=== PATIENT | male | born 1995 | race Caucasian/White ===

== ENCOUNTER 2023-03-29 11:34 | Emergency (ER) | payer OTHER, SELFPAY ==
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
--- NOTE | 2023-03-29 11:43 | PC.NURSE ---
pt arrived from triage to room nonverbal; responsive to painful stimuli. bilat large bore iv established. pa and staff electrical engineer at bedside. blood work obtained. sinus tachy on monitor. c-collar in place. ct notified for imaging.
--- NOTE | 2023-03-29 11:45 | PC.NURSE ---
Addendum entered by Andrew Llamas 03/29/23 12:46: wheeled in on wheelchair not stretcher Original Note: pt was wheeled into [facility]wr on stretcher, not responsive but breathing, collar placed on arrival and brought to room 19, c spine held as he was transferred via slide board to bed and awoke w sternal rub, prior to move, hr 115 and spo2 99 with rr 18
[2023-03-29 11:46] LABS: Glucose, Whole Blood 108 mg/dL (60-115)
--- NOTE | 2023-03-29 11:50 | ED.GENADULT ---
HPI - General Adult General Chief complaint: Fall Stated complaint: fell 10 feet Time Seen by Provider: 03/29/23 11:41 Source: patient Mode of arrival: ambulatory Limitations: altered mental status History of Present Illness HPI narrative: This is a 27-year-old male presenting to the emergency department status post unwitnessed fall from a 10 ft ladder, apparently patient was working on a roof, had an unwitnessed fall, did not have any head protection/helmet on. Patient has not been able to ambulate since the fall, according to family initially he appeared unresponsive, when he arrived to sternal rub was done, patient responded to painful stimuli and is moaning and groaning in pain unable to answer questions. Difficult to obtain NIH stroke scale as patient is not answering questions. GCS- 8 E(2) V(2) M(4) Related Data Allergies Allergy/AdvReac Type Severity Reaction Status Date / Time No Known Allergies Allergy Verified 03/29/23 11:40 Review of Systems Review of Systems: Yes Unobtainable due to mental status PMFSH Past Medical History Attestation statement: The following information was validated with the patient. Source: old records reviewed and nursing notes reviewed Social History Social History Advance Directives: No Advance Directives Information Provided: No Physical Exam ED Vital Signs: Vital Signs - 24 hr 03/29/23 12:06 03/29/23 12:42 Pulse Rate 108 H 77 Respiratory Rate 20 20 Blood Pressure 156/99 H 132/70 Pulse Oximetry 99 98 Oxygen Delivery Method Room Air Room Air BMI result Body Mass Index 27.7 Vital signs stable Appearance: Patient awake only to painful stimuli/sternal rub. GCS of 8. Moaning in pain. Head: Normocephalic, atraumatic, no step-offs or deformities Eyes: Pupils equal, round and reactive to light however, right pupil sluggish to respond to light ENT: Pharynx normal.? Normal gag reflex on initial exam Neck: Normal inspection.? Neck supple.? In a cervical collar for precaution CVS: Normal heart rate and rhythm.? Pulses normal.? Respiratory: No respiratory distress.? Breath sounds normal.? Abdomen: Soft and nontender.? Skin: Skin warm and dry.? Normal skin color.? Normal skin turgor.? Extremities:Patient able to move r UE and R LE, unable to move L UE, LE. 2+ DP,AT,PT pulses equal and b/l. Neuro: Patient awake only to painful stimuli/sternal rub. GCS of 8. Moaning in pain. + saddle paresthesias to L thigh region. + loss of sensation to LUE and LLE Course Reevaluation(s) Reevaluation #1: Patient slightly more arousable at this time states he cannot move his left side at all, cannot feel pain on his left side, , right-sided diminished sensation, has sluggish response on the right pupil. I am concerned for spinal injury/Brown-Sequard syndrome will reach out to [facility] Time: 12:15 Reevaluation #2: Patient will be a trauma transfer to [facility], concern for Brown-Sequard syndrome. I did discuss this with my attending who agrees with me. Dr. Moreno to except as [facility] trauma category 1. I did consider administering a 1 time 10 mg dose of Decadron however data is controversial, patient going to trauma center, they can determine if it is needed. Time: 12:26 Reevaluation #3: I did have my attending evaluate this patient at the bedside, no need for intubation at this time controlling his own airway, positive gag reflex. Time: 12:44 Additional Reevaluation(s): 1245 Patient with leukocytosis likely reactive secondary to fall. Chemistry unremarkable. Troponin negative, point of care stable. Patient's coags within normal limit. Ethanol negative. Covid negaive. MILLAN and scan results pending. Medications Administered Discontinued Medications Generic Name Dose Route Start Last Admin Trade Name Freq PRN Reason Stop Dose Admin Fentanyl 50 mcg 03/29/23 12:33 03/29/23 12:37 Fentanyl Citrate/Pf 100 Mcg/2 Ml Vial IVPUSH 03/29/23 12:34 50 mcg ONCE ONE Administration Protocol Iohexol 100 ml 03/29/23 12:00 03/29/23 12:01 Iohexol 350 Mg/Ml 100 Ml Infus..Btl IV 03/29/23 12:01 85 ml ONCE ONE Administration Morphine Sulfate 4 mg 03/29/23 12:20 03/29/23 12:30 Morphine Sulfate 4 Mg/Ml Cartridge IVPUSH 03/29/23 12:21 4 mg ONCE ONE Administration Protocol Medical Decision Making Medical Decision Making [facility] Narrative: 1154 27-year-old male presents status post unwitnessed fall with altered mental status, according to significant other patient fell off of a 10 ft ladder while doing roof work. No head protection. Not on blood thinners GCS 8- protecting own airway however. Physical exam patient only responding to painful stimuli and moaning in pain. Breath sounds clear. Pupils equal round and reactive however right pupil sluggish to respond to light. Patient not following commands. Patient able to move r UE and R LE, unable to move L UE, LE. Neuro: Patient awake only to painful stimuli/sternal rub. GCS of 8. Moaning in pain. + saddle paresthesias to L thigh region. + loss of sensation to LUE and LLE. Concerns for traumatic injury to head, neck, chest, abdomen or pelvis. Patient cervical collar. Will obtain basic labs, monzon scan. Will rule out polysubstance abuse and alcohol intoxication. I do have some suspicion for spinal cord injury, cauda equina or Brown sequard syndrome ( will obtain imaging w/ IV contrast prior to labs) Plan at this time labs, imaging, EKG. When a care 106 on arrival Differential Diagnosis Differential Diagnoses: The differential diagnosis associated with the presentation includes Concerns for traumatic injury to head, neck, chest, abdomen or pelvis. Patient cervical collar. Will obtain basic labs, monzon scan. Will rule out polysubstance abuse and alcohol intoxication. I do have some suspicion for spinal cord injury, cauda equina or Brown sequard syndrome Admission/Observation Consideration of admission/observation: Escalation of care including admission/observation considered like;y Consult Healthcare Provider Management of the patient was discussed with: Final Assembly And Packing Supervisor (SALVATORE almeida ) Lab Data MDM Lab Attestation statement: I reviewed the patient's lab results. 03/29/23 11:45 03/29/23 11:45 Labs: Lab Results 03/29/23 03/29/23 Range/Units 11:43 11:45 WBC 17.1 H (4.8-10.8) X10*3/uL RBC 5.17 (4.60-5.80) X10*6/uL Hgb 15.0 (14.0-18.0) g/dl Hct 45.4 (42.0-52.0) % MCV 87.8 (80.0-98.0) fL MCH 29.0 (27.0-33.0) pg MCHC 33.0 (31.0-36.0) g/dl RDW 13.0 (11.0-16.0) % Plt Count 357 (160-400) X10*3/uL MPV 10.4 (9.4-12.4) fL Immature Gran % (Auto) 0.7 H (0.0-0.4) % Neut % (Auto) 83.5 H (45-73) % Lymph % (Auto) 10.7 L (20-40) % [place] % (Auto) 4.3 (2-11) % Eos % (Auto) 0.4 (0-4) % Baso % (Auto) 0.4 (0-2) % Lymph # (Auto) 1.8 (1.2-4.9) X10*3/uL [place] # (Auto) 0.7 (0.1-1.2) X10*3/uL Eos # (Auto) 0.1 (0.0-0.4) X10*3/uL Baso # (Auto) 0.1 (0.0-0.2) X10*3/uL Abs Immat Gran (auto) 0.12 H (0.00-0.03) X10*3/uL Absolute Neuts (auto) 14.3 H (2.0-8.3) x10*3/uL Absolute Nucleated RBC 0.000 (0.0-0.012) X10*3/uL Nucleated RBC % (auto) 0.0 (0.0-0.2) /100WBC PT 12.2 (11.1-13.3) SEC INR 1.0 (0.9-1.1) Sodium 141 (135-145) mmol/L Potassium 3.9 (3.3-5.1) mmol/L Chloride 109 H (96-108) mmol/L Carbon Dioxide 23 (22-29) mmol/L Anion Gap 13 (12-20) BUN 14 (9-16) mg/dL Creatinine 1.12 (0.5-1.4) mg/dL Estim Creat Clear Calc 106.4 Estimated GFR > 60 POC Glucose 108 (60-115) mg/dL Random Glucose 90 (60-115) mg/dL Calcium 9.5 (8.4-10.2) mg/dL Magnesium 1.9 (1.6-2.6) mg/dL Total Bilirubin 0.6 (0.0-1.0) mg/dL AST 26 (5-37) U/L ALT 40 (0-40) U/L Alkaline Phosphatase 84 (39-117) U/L Troponin I High Sens < 2.7 (<3.5-35.0) ng/L Total Protein 8.0 (6.5-8.0) g/dL Albumin 4.9 (3.5-5.0) g/dL Ethyl Alcohol < 10 mg/dL COVID-19 (TEVIN) Negative (Negative) COVID-19 Clin Com See Note Independent Interpretation I performed an independent interpretation of an: Plain X-Ray (CXR wnl ) and CT Scan Radiology Impression Discussion of test interpretation with radiology: I have reviewed the radiologist's reading. Critical Care Time Critical Care Time Critical Care Time: Yes Total Critical Care Time: 45 Attestation: I attest to this time spent taking care of the patient, obtaining history, physical, reviewing labs, imaging, speaking to my attending, speaking to specialist. Discharge Plan Discharge Clinical Impression: Trauma, Fall from height of greater than 3 feet, Sensory loss Patient Disposition: [facility] Transfer Details: [facility] trauma category 1
[2023-03-29] MEDS: iohexoL 350 MG/ML 100 ML INFUS..BTL IV (12:01)
[2023-03-29 12:04] LABS: MANUAL DIFF FLAG NO
[2023-03-29 12:06] VITALS: BP 156/99; PULSE 108; RESP 20; O2SAT 99; BMI 27.7
--- NOTE | 2023-03-29 12:11 | ECG_ITS ---
Test Reason : fall Blood Pressure : / mmHG Vent. Rate : 090 BPM Atrial Rate : 090 BPM P-R Int : 168 ms QRS Dur : 082 ms QT Int : 314 ms P-R-T Axes : 050 021 035 degrees QTc Int : 384 ms Normal sinus rhythm Normal ECG No previous ECGs available Referred By: Adam Goodwin Electronically Signed By:ARDEN GASPAR
[2023-03-29 12:12] LABS: Prothrombin Time 12.2 SEC (11.1-13.3)
[2023-03-29 12:16] LABS: Basophils Absolute Auto 0.1 X10*3/uL (0.0-0.2); Basophils Percent Auto 0.4 % (0-2); Eosinophils Absolute Auto 0.1 X10*3/uL (0.0-0.4); Eosinophils Percent Auto 0.4 % (0-4); Hematocrit 45.4 % (42.0-52.0); Imm Gran Abs Auto 0.12 X10*3/uL (0.00-0.03); Imm Gran Pct Auto 0.7 % (0.0-0.4); Lymphocytes Absolute Auto 1.8 X10*3/uL (1.2-4.9); Lymphocytes Percent Auto 10.7 % (20-40); Mean Corpuscular Volume 87.8 fL (80.0-98.0); Mean Platelet Volume 10.4 fL (9.4-12.4); Monocytes Absolute Auto 0.7 X10*3/uL (0.1-1.2); Monocytes Percent Auto 4.3 % (2-11); Neutrophils Absolute Auto 14.3 x10*3/uL (2.0-8.3); Neutrophils Percent Auto 83.5 % (45-73); Platelet Count 357 X10*3/uL (160-400); Red Blood Count 5.17 X10*6/uL (4.60-5.80); White Blood Count 17.1 X10*3/uL (4.8-10.8)
[2023-03-29 12:26] LABS: Alanine Aminotransferase 40 U/L (0-40); Albumin Level 4.9 g/dL (3.5-5.0); Alkaline Phosphatase 84 U/L (39-117); Anion Gap 13 (12-20); Aspartate Amino Transferase 26 U/L (5-37); Bilirubin Total 0.6 mg/dL (0.0-1.0); Blood Urea Nitrogen 14 mg/dL (9-16); Calcium 9.5 mg/dL (8.4-10.2); Carbon Dioxide 23 mmol/L (22-29); Chloride 109 mmol/L (96-108); Creatinine Clr Calc Pharmacy 106.4; Estimated Glomerular Filt Rate > 60; Glucose Random 90 mg/dL (60-115); Magnesium 1.9 mg/dL (1.6-2.6); Potassium 3.9 mmol/L (3.3-5.1); Sodium 141 mmol/L (135-145)
[2023-03-29 12:29] LABS: COVID-19 Test Negative (Negative); IDNOW Serial# 08D9AD1C
[2023-03-29 12:30] LABS: Ethanol < 10 mg/dL
[2023-03-29 12:33] LABS: Troponin-I High Sensitivity < 2.7 ng/L (<3.5-35.0)
[2023-03-29] MEDS: fentaNYL citrate/PF 100 MCG/2 ML VIAL 50 MCG IVPUSH (12:37)
--- NOTE | 2023-03-29 12:39 | PC.NURSE ---
Addendum entered by Trinidad Barbosa 03/29/23 12:42: awaiting transfer to [facility]. Original Note: parra placed; vitals remain stable. LLE movement noted upon insertion of parra. pt reports inability to move/feel LUE. Pt reports pain of L. ribs. full ROM R upper and lower extremities. pt slow to respond at times. Rimma MARTIN and Dr. Narvaez at bedside at this time.
[2023-03-29 12:42] VITALS: BP 132/70; PULSE 77; RESP 20; O2SAT 98
[2023-03-29 12:59] VITALS: BP 136/72; PULSE 76; RESP 18; O2SAT 100
--- NOTE | 2023-03-29 13:00 | PC.NURSE ---
ems arrival to transfer pt to [facility].
--- NOTE | 2023-03-29 13:10 | PC.NURSE ---
report given to Trauma RN Breanne Khan [id number]
[2023-03-29 13:59] LABS: B Type Natriuretic Peptide < 10 pg/mL (<100)
== END 2023-03-29 13:12 | disposition short-term general hospital (02) ==
PROVIDERS: Physician Assistant; Emergency Provider Emergency Medicine
DX: R41.82 Altered mental status, unspecified (principal); R20.2 Paresthesia of skin; R44.9 Unspecified symptoms and signs involving general sensations and perceptions; Z91.81 History of falling; Z20.822 Contact with and (suspected) exposure to COVID-19; R00.0 Tachycardia, unspecified; R07.81 Pleurodynia
CPT/HCPCS: 36415; 51702; 70450; 71045; 71260; 72125; 74177; 80053; 80307; 82550; 82947; 83735; 83880; 84484; 85025; 85610; 87635; 93005; 96374; 96375; 99285; J2270; J3010; Q9967

== ENCOUNTER 2023-06-13 14:13 | Emergency (ER) | payer OTHER, SELFPAY ==
--- NOTE | ~2023-06-13 | XR_ITS ---
EXAMINATION: XR RIBS, LEFT CLINICAL INFORMATION: Left-sided rib pain COMPARISON: None available. TECHNIQUE: Single view chest and 4 views of the left ribs were obtained. FINDINGS: Lungs are clear. No consolidation, pneumothorax, or pleural effusion. The cardiomediastinal silhouette and pulmonary vasculature are normal. There are acute fractures involving the anterolateral seventh eighth and ninth ribs with the most displacement at the level of the eighth rib. No other fractures are seen.. XR/XR ribs LT min 3V w CXR1V IMPRESSION: Acute fractures involving the left seventh, eighth and ninth ribs.
--- NOTE | 2023-06-13 14:16 | ECG_ITS ---
Test Reason : CHEST DISCOMFORT Blood Pressure : / mmHG Vent. Rate : 059 BPM Atrial Rate : 059 BPM P-R Int : 144 ms QRS Dur : 082 ms QT Int : 376 ms P-R-T Axes : 013 011 018 degrees QTc Int : 372 ms Sinus bradycardia Otherwise normal ECG When compared with ECG of 29-MAR-2023 12:11, Vent. rate has decreased BY 31 BPM Referred By: Sofie Awad Electronically Signed By:JOSÉ GILL MD
[2023-06-13 14:43] VITALS: BP 138/60; PULSE 69; RESP 19; TEMP 36.6; O2SAT 100; BMI 30.3
--- NOTE | 2023-06-13 14:46 | ED_ITS ---
HPI - General Adult General Chief complaint: General Medical Stated complaint: Chest pain - broken rib ? Time Seen by Provider: 06/13/23 15:02 Source: patient Mode of arrival: ambulatory Limitations: no limitations History of Present Illness HPI narrative: Patient is a 27-year-old male presenting to the emergency department with complaint of left lateral rib pain since yesterday. States that he was helping his to clean the house and after a twisting motion while moving the refrigerator felt a cracking sensation to left ribs. Reports he has had a nonproductive cough for the past several days and the coughing is exacerbating his rib pain. Denies fevers. Denies hemoptysis. Patient seen here on 03/29 after a fall from roof and was subsequently transferred to [facility] as a trauma. Patient reports that he was diagnosed with rib fractures at [facility] at that time and was told to use caution with strenuous activities. Has not taken any gozl-rgl-[id number] medications for his symptoms. MD complaint: rib pain Onset (ago): hour(s) Location: chest Radiation: non-radiation Severity: severe and similar to prior episodes Quality: aching Pain Consistency: constant Relieving factors: rest Exacerbating factors: movement Associated symptoms: cough Treatments prior to arrival: none Related Data Previous Rx's Medication Instructions Recorded benzonatate 100 mg capsule 100 mg PO TID PRN cough #20 caps 06/13/23 ibuprofen 600 mg tablet 600 mg PO Q6H PRN pain #20 tabs 06/13/23 oxycodone 5 mg tablet 5 mg PO Q8H PRN pain #9 tabs 06/13/23 Allergies Allergy/AdvReac Type Severity Reaction Status Date / Time shrimp Allergy Hives Verified 06/13/23 14:42 Review of Systems Review of Systems: As per HPI. Yes all other systems are reviewed and are negative Constitutional: Constitutional: Reports as per HPI PMF Social History Social History Smoked in Last 30 Days: No Use of substances other than those prescribed or required for medical reasons: No Advance Directives: No Advance Directives Information Provided: No Physical Exam ED Vital Signs: Vital Signs - 24 hr 06/13/23 14:43 06/13/23 15:28 Temperature 98 F Pulse Rate 69 59 Respiratory Rate 19 16 Blood Pressure 138/60 127/72 Pulse Oximetry 100 99 Oxygen Delivery Method Room Air Room Air BMI result Body Mass Index 30.3 Vital signs have been reviewed and appear to be correct. Blood pressure normal. Heart rate normal. Respiratory rate normal. Temperature normal. Oxygen saturation normal. Const General: cooperative, healthy appearing and no acute distress Orientation/consciousness: oriented to person, oriented to place, oriented to time and patient oriented x3 Limitations: no limitations HENNM Head: Yes normocephalic and Yes atraumatic Ears: external ears normal General nose exam: Normal external nose present Face and sinus: Yes face symmetric Mouth: oropharynx normal and moist mucous membranes Throat: Yes uvula midline Eyes Pupils: Equal, round and reactive pupils present Neck Neck: Yes normal visual inspection and Yes supple Chest Chest palpation & inspection: normal inspection of the chest (no ecchymosis) and tenderness rib left anterior-axillary line involving the 6th rib, involving the 7th rib, involving the 8th rib, involving the 9th rib and involving the 10th rib Resp Effort & Inspection: normal respiratory effort and able to speak in complete sentences Auscultation: clear to auscultation bilaterally Cardio Rate: regular rate Rhythm: regular rhythm Heart sounds: S1 normal heart sound present and S2 normal heart sound present GI Palpation (GI): Soft to palpation and nontender Auscultation: normoactive bowel sounds General: Yes no CVA tenderness Back/Spine/Pelvis Back: no CVA tenderness Skin General skin exam: elasticity normal and turgor normal Neuro General: oriented to person, oriented to place, oriented to time, patient oriented x3, moves all extremities, no focal motor deficits and CN's II-XI intact bilaterally Cranial nerves: Yes Equal, round and reactive pupils present Cognition (Neuro): normal cognition Extrem General: Yes full ROM, Yes no pedal edema and Yes no calf tenderness Psych Mental Status: mental status grossly normal Affect: normal affect Thought process: Normal thought process present Course Course Course Narrative: This is an RME: Additional HPI, ROS, PE not included below will be deferred to primary provider. This is a [id number]male presenting to the emergency department with a complaint of left rib pain. Patient states that he fell a month and half ago and broke several ribs on his left side. He states that yesterday he was doing house work and felt a crack in the left side. Reporting that he has had a cough. Plan: left ribs xr and viral swabs Medications Administered Discontinued Medications Generic Name Dose Route Start Last Admin Trade Name Nick PRN Reason Stop Dose Admin Acetaminophen 975 mg 06/13/23 16:07 06/13/23 16:17 Acetaminophen 325 Mg Tablet PO 06/13/23 16:08 975 mg ONCE ONE Administration Ibuprofen 800 mg 06/13/23 16:07 06/13/23 16:17 Ibuprofen 800 Mg Tablet PO 06/13/23 16:08 800 mg ONCE ONE Administration Medical Decision Making Medical Decision Making [facility] Narrative: Patient is a 27-year-old male presenting to the emergency department with complaint of left lateral rib pain since yesterday. On exam patient is awake, A+Ox3, VS WNL, afebrile, normal neurological exam without focal deficits, physical exam findings as above. Given reported symptoms and physical exam findings, initial differential includes rib fracture, muscle strain, viral illness. X-ray notable for fracture of left 7th, 8th, and 9th ribs. My interpretation is in agreement with the radiologist's interpretation. Given that fractures are unilateral, no evidence of flail chest, patient maintaining oxygen saturation without difficulty and reports pain is manageable, feel patient is stable for discharge home at this time. Patient is agreeable with this. Discussed with patient the importance of pain management and taking deep breaths to prevent pneumonia. Strict return precautions discussed. Will prescribe benzonatate for cough, oxycodone for severe pain, advised patient to alternate Tylenol ibuprofen, apply ice intermittently, splint with pillows. RSV swab positive, patient advised of results. Instructed patient to follow-up with primary care provider. Patient verbalized understanding of and agreement with plan. Differential Diagnosis Differential Diagnoses: The differential diagnosis associated with the presentation includes As per [facility]. Admission/Observation Consideration of admission/observation: Escalation of care including admission/observation considered Given that patient has 3 rib fractures, admission considered, however patient is not hypoxic or tachypneic and is generally healthy, feel is stable for discharge home Lab Data [facility] Lab Attestation statement: I reviewed the patient's lab results. As per [facility]. Labs: Lab Results 06/13/23 Range/Units 15:28 Influenza Type A (PCR) NEGATIVE (Negative) Influenza Type B (PCR) NEGATIVE (Negative) RSV RNA Qual (PCR) POSITIVE A (Negative) SARS-CoV-2 RNA (RT-PCR) NEGATIVE (Negative) Independent Interpretation I performed an independent interpretation of an: Plain X-Ray Interpretation: Fracture of left 7th, 8th, and 9th ribs Radiology Impression Discussion of test interpretation with radiology: I have reviewed the radiologist's reading. Radiologist Impression: XR/XR ribs LT min 3V w CXR1V IMPRESSION: Acute fractures involving the left seventh, eighth and ninth ribs. External Record Review External record reviewed: Inpatient record, Office record and Outpatient record Prescription Management I considered prescription management with: Pain Medication and Other Discharge Plan Discharge Clinical Impression: RSV infection Left rib fracture Qualifiers: Encounter type: initial encounter Rib fracture type: multiple ribs Fracture type: closed Qualified Code(s): S22.42XA - Multiple fractures of ribs, left side, initial encounter for closed fracture Patient Disposition: Home, Self-Care Instructions: Respiratory Syncytial Virus (ED), Rib Fracture (ED) Additional Instructions: You have been evaluated in the emergency department today for rib pain. Your evaluation showed a fracture of your 7th, 8th, and 9th ribs. Please rest, ice, and use pillows to splint your ribs to help them heal. Use Tylenol or ibuprofen per package directions every 6 hours as needed for pain. If necessary, you can alternate these medications and take one medication every 3 hours. For instance, at noon take ibuprofen, then at 3:00 p.m. take Tylenol, then at 6:00 p.m. take ibuprofen. You are being prescibed oxycodone for severe pain, do not drink alcohol with this medication. Please follow-up with your primary care provider within 1 week. Return to the emergency department if you experience worsening pain, shortness of breath or difficulty breathing, coughing up blood, fever or any other concerning symptoms. Prescriptions: New ibuprofen 600 mg tablet 600 mg PO Q6H PRN (Reason: pain) Qty: 20 0RF benzonatate 100 mg capsule 100 mg PO TID PRN (Reason: cough) Qty: 20 0RF oxycodone 5 mg tablet 5 mg PO Q8H PRN (Reason: pain) Qty: 9 0RF Rx Instructions: Partial Fill upon patient request. Stand Alone Forms: Work/School Release
--- NOTE | 2023-06-13 15:01 | PC.NURSE ---
pt currently going to xray.
--- OUTSIDE RECORDS SUMMARY | 2023-06-13 15:18 | XMS_ITS | Continuity of Care Document ---
Author Name Unknown Organization [facility] Address [address] [place] [address]- Care Team Providers Care Controls Designer Name Role Phone Not on Staff, PCP Primary Care Physician Unavail able Encounter [facility] Date(s): 01/05/22 - 02/04/[address] [address]- Attending Physician: Jono Bateman Admitting Physician: Jono Bateman Referring Physician: AdmtrJono Allergies, Adverse Reactions, Alerts No Known Allergies Immunizations Given and Recorded Vaccine Date Status Refusal Reason Human Papillomavirus Vaccine 06/02/16 Given Human Papillomavirus Vaccine 1 03/19/14 Given Human Papillomavirus Vaccine 2 04/03/13 Given influenza virus vaccine, inactivated 06/02/16 Give n influenza virus vaccine, inactivated 3 04/03/13 Gi hattie influenza virus vaccine, inactivated 4 04/19/11 Gi hattie 1Result Comment: [03/19/2014] ordered by Dr Grande 2Rkelly Comment: [04/03/2013] Order By Dr Sanchez 3Rkelly Comment: [04/03/2013] Order By Dr Sanchez 4Admin Note: VIS 02/07/2011GIVEN Medications Levsin 0.125 mg oral tablet 0.125 mg, 1, tablet, By Mouth, 4 times a day, PRN, use one hour before meals and before bed. discontinue if it makes pain worse, # 20 tablet, Refills 0, Tot. Refills 0, Maintenance, for spasm, 01/09/17 22:36:43, Print Requisition Start Date: 01/09/17 Stop Date: 01/23/17 Status: Ordered omeprazole 20 mg oral enteric coated capsule 1 capsule = 20 mg, By Mouth, Daily, # 30 capsule, 2 Refills, Maintenance, 01/11/17 11:23:32, EC Capsule Start Date: 01/11/17 Status: Ordered Zofran 4 mg oral tablet 1 tablet = 4 mg, By Mouth, Every 8 hours, PRN Nausea & Vomiting, # 10 tablet, 0 Refills, Maintenance, 12/12/19 10:42:00 EDT, Tablet, [id number], 175, cm, 12/12/19 10:24:00 EDT, Height, 88.6, kg, 05/16/19 10:34:00 EDT, Dry Weight Start Date: 12/12/19 Stop Date: 12/15/19 Status: Ordered Problem List Condition Effective Dates Status Health Status Inform ant Attention deficit hyperactiv ity disorder(Confirmed) Active Behavioral problem(Confirmed) Active Social History Social History Type Response Smoking Status Never smoker entered on: 06/02/16 Sex
--- OUTSIDE RECORDS SUMMARY | 2023-06-13 15:18 | XMS_ITS | Continuity of Care Document ---
Author Name Unknown Organization [facility] Address [address] [place] [address]- Care Team Providers Care Pre K Teacher Name Role Phone Joe Olson MD Primary Care Physician Encounter [facility] Date(s): 05/03/23 - 06/02/[address] [id number] Allergies, Adverse Reactions, Alerts No Known Allergies Immunizations Given and Recorded Vaccine Date Status Refusal Reason [id number] 12y+ bivalent booster vax 06/12/22 Given SARS-CoV-2 (COVID-19) mRNA-1273 vaccine 06/23/21 R ecorded SARS-CoV-2 (COVID-19) mRNA-1273 vaccine 05/26/21 R ecorded Human Papillomavirus Vaccine 06/02/16 Given Human Papillomavirus Vaccine 1 03/19/14 Given Human Papillomavirus Vaccine 2 04/03/13 Given influenza virus vaccine, inactivated 06/02/16 Give n influenza virus vaccine, inactivated 3 04/03/13 Gi hattie influenza virus vaccine, inactivated 4 04/19/11 Gi hattie 1Result Comment: [03/19/2014] ordered by Dr Grande 2Result Comment: [04/03/2013] Order By Dr Sanchez 3Result Comment: [04/03/2013] Order By Dr Sanchez 4Admin Note: VIS 02/07/2011GIVEN Medications ambulation walker ambulation walker, See Instructions, # 1 each, Refills 0, Tot. Refills 0, Maintenance, ambulation walker, 03/30/23 16:15:00 EDT, Supply, 175, cm, 03/22/23 14:33:00 EDT, Height Start Date: 03/30/23 Status: Ordered ambulation walker ambulation walker, See Instructions, # 1 each, Refills 0, Tot. Refills 0, Maintenance, ambulation walker, 03/30/23 16:19:00 EDT, Supply Start Date: 03/30/23 Status: Ordered bacitracin zinc 500 units/g topical ointment 1 application, Topically, 3 times a day, # 30 Gm, 0 Refills, Maintenance, 04/20/23 16:23:00 EDT, Ointment, [id number], Partial fill upon patient request if the prescription is for a schedule II opioid drug., 1 application Topically 3 times a d... Start Date: 04/20/23 Status: Ordered blood pressure monitor dx reports htn blood pressure monitor dx reports htn, See Instructions, # 1 each, Refills 0, Tot. Refills 0, Maintenance, below, 07/11/22 15:59:00 EST, Supply Start Date: 07/11/22 Status: Ordered busPIRone 5 mg oral tablet See Instructions, 1 tablet By Mouth upt to 2 times a day for anxiety, # 30 tablet, Refills 0, Tot. Refills 0, Maintenance, 10/30/22 9:23:00 EDT, Instructions Replace Required Details, Route to Pharmacy Electronically, [id number], Partial fill... Start Date: 10/30/22 Status: Ordered famotidine 20 mg oral tablet 20 mg, 1, tablet, By Mouth, 2 times a day, # 60 tablet, Refills 1, Tot. Refills 1, Maintenance, 02/12/23 17:58:00 EDT, Route to Pharmacy Electronically, [id number], Partial fill upon patient request if the prescription is for a schedule II opi... Start Date: 02/12/23 Status: Ordered lidocaine 1.8% topical film 1 patch, Topically, Daily, leave on up to 12 hours, # 30 each, 0 Refills, Maintenance, 12/13/22 9:56:00 EDT, Film, [id number], Partial fill upon patient request if the prescription is for a schedule II opioid drug., 1 patch Topically Daily,Ins... Start Date: 12/13/22 Status: Ordered [employer] COVID-19 (12y+) Bivalent Booster Vaccine PF intramuscular suspension 0.3 mL, Intramuscular, Once, # 0.3 mL, 0 Refills, Soft Stop, 06/12/22 16:26:00 EST, [id number], Partial fill upon patient request if the prescription is for a schedule II opioid drug., 0.3 mLIntramuscular Once, 175, cm, 06/12/22 15:53:00 EST,... Start Date: 06/12/22 Status: Ordered physical therapy physical therapy, See Instructions, # 1 each, Refills 0, Tot. Refills 0, Maintenance, physical therapy, 03/30/23 16:19:00 EDT, Supply Start Date: 03/30/23 Status: Ordered Request for out patient physical therapy Request for out patient physical therapy, See Instructions, # 1 each, Refills 0, Tot. Refills 0, Maintenance, Physical therapy, 03/30/23 16:14:00 EDT, Supply, 175, cm, 03/22/23 14:33:00 EDT, Height Start Date: 03/30/23 Status: Ordered SARS-CoV-2 (COVID-19) mRNA-1273 (bivalent booster) vaccine preservative-free IM susp 0.5 mL, Intramuscular, Once, # 0.5 mL, 0 Refills, Soft Stop, 05/03/22 14:42:00 EDT, Partial fill upon patient request if the prescription is for a schedule II opioid drug. Start Date: 05/03/22 Status: Ordered Senna 8.6 mg oral tablet 8.6 mg, 1, tablet, By Mouth, Daily at bedtime, PRN, # 36 tablet, Refills 0, Tot. Refills 0, Maintenance, Constipation, 12/12/22 16:13:00 EDT, Route to Pharmacy Electronically, [id number] Tablet, Partial fill upon patient request if the prescri... Start Date: 12/12/22 Status: Ordered Zofran 4 mg oral tablet 1 tablet = 4 mg, By Mouth, Every 8 hours, PRN Nausea & Vomiting, # 10 tablet, 0 Refills, Maintenance, 12/12/19 10:42:00 EDT, Tablet, [id number], 175, cm, 12/12/19 10:24:00 EDT, Height, 88.6, kg, 05/16/19 10:34:00 EDT, Dry Weight Start Date: 12/12/19 Stop Date: 12/15/19 Status: Ordered Problem List Condition Confirmation Course Effective Dates Status H ealth Status Informant Attention deficit hyperactivity disorder Confirmed Active Behavioral problem Confirmed Active COVID-19 1 Confirmed 03/30/23 Active Obese class I Confirmed Active 1Problem added by Discern Expert Social History Social History Type Response Smoking Status Never smoker entered on: 06/02/16 Sex Male Patient Care team information Care Team Personnel Name: Joe Olson MD Position: [facility] Resident Member Role: PCP Address: Address: [address] [place] [address]- Care Team Related Persons Name: LO DAWSON Address: home [address] [place] [address]
--- OUTSIDE RECORDS SUMMARY | 2023-06-13 15:18 | XMS_ITS | Continuity of Care Document ---
Author Name Unknown Organization [facility] Address [address] [place] [address]- Care Team Providers Care Billing Spec Name Role Phone Wesley THOMPSON, Joe Primary Care Physician Encounter [facility] Date(s): 07/14/22 - 08/13/[address] [address] Allergies, Adverse Reactions, Alerts No Known Allergies Immunizations Given and Recorded Vaccine Date Status Refusal Reason [id number] 12y+ bivalent booster vax 06/12/22 Given SARS-CoV-2 [...] Dr Sanchez 4Admin Note: VIS 02/07/2011GIVEN Medications blood pressure monitor dx reports htn blood pressure monitor dx reports htn, See Instructions, # 1 each, Refills 0, Tot. Refills 0, Maintenance, below, 07/11/22 15:59:00 EST, Supply Start Date: 07/11/22 Status: Ordered busPIRone 5 mg oral tablet See Instructions, 1 tablet By Mouth upt to 2 times a day for anxiety, # 20 tablet, Refills 0, Tot. Refills 0, Maintenance, 07/11/22 15:57:00 EST, Instructions Replace Required Details, Route to Pharmacy Electronically, [facility]/pharm[facility] #[id number], Partial erik... Start Date: 07/11/22 Status: Ordered Heartburn Relief 10 mg oral tablet See Instructions, DANNY SHARP [facility] DOS [facility]ECES [place], # 60 tablet, 0 Refills, Maintenance, 06/14/22 18:43:00 EST, [id number], 175, cm, 06/12/22 15:53:00 EST, Height Start Date: 06/14/22 Status: Ordered [employer] COVID-19 (12y+) Bivalent Booster Vaccine PF intramuscular suspension 0.3 mL, Intramuscular, Once, # 0.3 mL, 0 Refills, Soft Stop, 06/12/22 16:26:00 EST, [facility]/pharm[facility] #[id number], Partial fill upon patient request if the prescription is for a schedule II opioid drug., 0.3 mLIntramuscular Once, 175, cm, 06/12/22 15:53:00 EST,... Start Date: 06/12/22 Status: Ordered SARS-CoV-2 (COVID-19) mRNA-1273 (bivalent booster) vaccine preservative-free IM susp 0.5 mL, Intramuscular, Once, # 0.5 mL, 0 Refills, Soft Stop, 05/03/22 14:42:00 EDT, Partial fill upon patient request if the prescription is for a schedule II opioid drug. Start Date: 05/03/22 Status: Ordered Zofran 4 mg oral tablet 1 tablet = 4 mg, By Mouth, Every 8 hours, PRN Nausea & Vomiting, # 10 tablet, 0 Refills, Maintenance, 12/12/19 10:42:00 EDT, Tablet, [facility]/pharm[facility] #[id number], 175, cm, 12/12/19 10:24:00 EDT, Height, 88.6, kg, 05/16/19 10:34:00 EDT, Dry Weight Start Date: 12/12/19 Stop Date: 12/15/19 Status: Ordered Problem List Condition Confirmation Course Effective Dates Status H ealth Status Informant Attention deficit hyperactivity disorder Confirmed Active Behavioral problem Confirmed Active Social History Social History Type Response Smoking Status Never smoker entered on: 06/02/16 Sex Patient Care team information Care Team Personnel Name: Joe Olson MD Position: [facility] Resident Member Role: PCP Address: Address: [address] [place] [address]- Care Team Related Persons Name: LO DAWSON Name: JOAQUIN LOYA Address: home [address] [place] [address]
--- OUTSIDE RECORDS SUMMARY | 2023-06-13 15:18 | XMS_ITS | Continuity of Care Document ---
Author Name Unknown Organization [facility] Address [address] [place] [address]- Care Team Providers Care Factory Maintenance Manager Name Role Phone Joe Olson MD Primary Care Physician Encounter [facility] Date(s): 10/17/22 - 12/20/[address] [address]- Attending Physician: Esperanza Garcia MD Admitting Physician: Esperanza Garcia MD Allergies, Adverse Reactions, Alerts No Known Allergies Immunizations Given and Recorded Vaccine Date Status Refusal Reason [id number] 12y+ bivalent booster vax 06/12/22 Given SARS-CoV-2 [...] Replace Required Details, Route to Pharmacy Electronically, [facility]/pharmacy #[id number], Partial fill... Start Date: 10/30/22 Status: Ordered famotidine 10 mg oral tablet 1 tablet = 10 mg, By Mouth, 2 times a day, # 60 tablet, 0 Refills, Maintenance, 10/30/22 9:24:00 EDT, Tablet, [facility] #[id number], Partial fill upon patient request if the prescription is for a schedule II opioid drug., 175, cm, 10/30/22 8:46:00 EDT, H... Start Date: 10/30/22 Status: Ordered ibuprofen 600 mg oral tablet 600 mg, 1, tablet, By Mouth, Every 6 hours, PRN, with food or milk, # 30 tablet, Refills 1, Tot. Refills 1, Acute 01/12/23 16:12:00 EDT, as needed for pain, 12/12/22 16:12:00 EDT, Route to Pharmacy Electronically, [facility]/pharmacy #[id number], 175, cm, 12/06/22... Start Date: 12/12/22 Stop Date: 01/12/23 Status: Ordered lidocaine 1.8% topical film 1 patch, Topically, Daily, leave on up to 12 hours, # 30 each, 0 Refills, Maintenance, 12/13/22 9:56:00 EDT, Film, [facility]/pharmacy #[id number], Partial fill upon patient request if the prescription is for a schedule II opioid drug., 1 patch Topically Daily,Ins... Start Date: 12/13/22 Status: Ordered Eligible COVID-19 (12y+) Bivalent Booster Vaccine PF intramuscular suspension 0.3 mL, Intramuscular, Once, # 0.3 mL, 0 Refills, Soft Stop, 06/12/22 16:26:00 EST, [id number], Partial fill upon patient request [...] 12/12/22 16:13:00 EDT, Route to Pharmacy Electronically, [facility]/pharmacy #[id number] Tablet, Partial fill upon patient request if the prescri... Start Date: 12/12/22 Status: Ordered Zofran 4 mg oral tablet 1 tablet = 4 mg, By Mouth, Every 8 hours, PRN Nausea & Vomiting, # 10 tablet, 0 Refills, Maintenance, 12/12/19 10:42:00 EDT, Tablet, [facility]/pharmacy #[id number], 175, cm, 12/12/19 10:24:00 EDT, Height, 88.6, kg, 05/16/19 10:34:00 EDT, Dry Weight Start Date: 12/12/19 Stop Date: 12/15/19 Status: Ordered Problem List Condition Confirmation Course Effective Dates Status H ealth Status Informant Attention deficit hyperactivity disorder Confirmed Active Behavioral problem Confirmed Active Obese class I Confirmed Active Social History Social History Type Response Smoking Status Never smoker entered on: 06/02/16 Sex Patient Care team information Care Team Personnel Name: Joe Olson MD Position: S Resident Member Role: PCP Address: Address: [address] [place] [id number]- Care Team Related Persons Name: LO DAWSON Name: JOAQUIN LOYA Address: home [address] [place] [address]
--- OUTSIDE RECORDS SUMMARY | 2023-06-13 15:19 | XMS_ITS | Continuity of Care Document ---
Author Name Unknown Organization [facility] Address [address] [place] [address]- Care Team Providers Care Cadastral Engineer Name Role Phone Joe Olson MD Primary Care Physician [phone] [facility]counter [facility] Date[facility]s): 07/18/22 - 08/17/[address] [address]- Allergies, Adverse Reactions, Alerts No Known Allergies Immunizations Given and Recorded Vaccine Date Status Refusal Reason [id number] 12y+ bivalent booster vax 06/12/22 Given SARS-CoV-2 [...] Replace Required Details, Route to Pharmacy Electronically, [facility]/pharmacy #[id number], Partial erik... Start Date: 07/11/22 Status: Ordered Heartburn Relief 10 mg oral tablet See Instructions, TOME ARON TABLETA DOS VECES AL ALTA, # 60 tablet, 0 Refills, Maintenance, 06/14/22 18:43:00 EST, [id number], 175, cm, 06/12/22 15:53:00 EST, Height Start Date: 06/14/22 Status: Ordered [email or web address] COVID-19 (12y+) Bivalent Booster Vaccine PF intramuscular suspension 0.3 mL, Intramuscular, Once, # 0.3 mL, 0 Refills, Soft Stop, 06/12/22 16:26:00 EST, [facility]/pharmacy #[id number], Partial fill upon patient request if [...] 0 Refills, Maintenance, 12/12/19 10:42:00 EDT, Tablet, [facility]/pharmacy #[id number], 175, cm, 12/12/19 10:24:00 EDT, Height, [...] S Resident Member Role: PCP Address: Address: [address] [place] [address]- Care Team Related Persons Name: LO DAWSON Name: JOAQUIN LOYA Address: home [address] [place] [address]
--- OUTSIDE RECORDS SUMMARY | 2023-06-13 15:19 | XMS_ITS | Continuity of Care Document ---
Author Name Unknown Organization [facility] Address [address] [place] [address]- Care Team Providers Care Online Banking Specialist Name Role Phone Joe Olson MD Primary Care Physician [phone] [facility]counter [facility] Date(s): 03/21/23 - 04/20/[address] [address]- Attending Physician: Jono Bateman Admitting Physician: Jono Bateman Referring Physician: AdmtrJono Allergies, Adverse Reactions, Alerts No Known Allergies Immunizations Given and Recorded Vaccine Date Status Refusal Reason [id number] 12y+ bivalent booster vax 06/12/22 Given SARS-CoV-2 [...] 1Result Comment: [03/19/2014] ordered by Dr Grande 2Resluisa Comment: [04/03/2013] Order By Dr Sanchez 3Result [...] 0 Refills, Maintenance, 04/20/23 16:23:00 EDT, Ointment, [facility]/pharmacy #[id number], Partial fill upon patient request [...] Replace Required Details, Route to Pharmacy Electronically, [facility]/pharmacy #[id number], Partial fill... Start Date: 10/30/22 Status: Ordered famotidine 20 mg oral tablet 20 mg, 1, tablet, By Mouth, 2 times a day, # 60 tablet, Refills 1, Tot. Refills 1, Maintenance, 02/12/23 17:58:00 EDT, Route to Pharmacy Electronically, [facility]/pharmacy #[id number], Partial fill upon patient request if the prescription is for a schedule II opi... Start Date: 02/12/23 Status: Ordered lidocaine 1.8% topical film 1 patch, Topically, Daily, leave on up to 12 hours, # 30 each, 0 Refills, Maintenance, 12/13/22 9:56:00 EDT, Film, [facility]/pharmacy #[id number], Partial fill upon patient request if the prescription is for a schedule II opioid drug., 1 patch Topically Daily,Ins... Start Date: 12/13/22 Status: Ordered morphine 15 mg oral tablet, immediate release 1 tablet = 15 mg, By Mouth, Every 12 hours, PRN for pain, # 30 tablet, 0 Refills, Acute 05/05/23 13:00:00 EDT, 04/20/23 16:08:00 EDT, Tablet, [facility]/pharmacy #[id number], Partial fill upon patient request if the prescription is for a schedule II opioid drug.,... Start Date: 04/20/23 Stop Date: 05/05/23 Status: Ordered [employer] COVID-19 (12y+) Bivalent Booster Vaccine PF intramuscular suspension 0.3 mL, Intramuscular, Once, # 0.3 mL, 0 Refills, Soft Stop, 06/12/22 16:26:00 EST, [facility]/pharmacy #[id number], Partial fill upon patient request [...] 12/12/22 16:13:00 EDT, Route to Pharmacy Electronically, [facility]/pharmacy #[id number] Tablet, Partial fill upon patient request if the prescri... Start Date: 12/12/22 Status: Ordered Zofran 4 mg oral tablet 1 tablet = 4 mg, By Mouth, Every 8 hours, PRN Nausea & Vomiting, # 10 tablet, 0 Refills, Maintenance, 12/12/19 10:42:00 EDT, Tablet, [facility]/pharmacy #[id number], 175, cm, 12/12/19 10:24:00 EDT, [...] S Resident Member Role: PCP Address: Address: [address] [place] [address]- Care Team Related Persons Name: LO DAWSON Address: home [address] [place] [id number]
--- OUTSIDE RECORDS SUMMARY | 2023-06-13 15:19 | XMS_ITS | Continuity of Care Document ---
Author Name Unknown Organization [facility] Address [address] [place] [address]- Care Team Providers Care Tester Waste Disposal Leakage Name Role Phone Joe Olson MD Primary Care Physician [phone] [facility] Date(s): 05/03/22 - 06/22/[address] [address]- Attending Physician: Not on Staff, Attending MD Allergies, Adverse Reactions, Alerts No Known Allergies Immunizations Given and Recorded Vaccine Date Status Refusal Reason [id number] 12y+ bivalent booster vax 06/12/22 Given SARS-CoV-2 [...] Dr Sanchez 4Admin Note: VIS 02/07/2011GIVEN Medications Heartburn Relief 10 mg oral tablet See Instructions, TOMJuan ARON TABLETA DOS VECES AL ALTA, # 60 tablet, 0 Refills, Maintenance, 06/14/22 18:43:00 EST, [facility], 175, cm, 06/12/22 15:53:00 EST, Height Start Date: 06/14/22 Status: Ordered [employer] COVID-19 (12y+) Bivalent Booster Vaccine PF intramuscular [...] S Resident Member Role: PCP Address: Address: [address] [place] [address]- Care Team Related Persons Name: LO DAWSON Name: JOAQUIN LOYA Address: home [address] [place] [address]
--- OUTSIDE RECORDS SUMMARY | 2023-06-13 15:19 | XMS_ITS | Continuity of Care Document ---
Author Name Unknown Organization [facility] Address [address] [place] [address]- Care Team Providers Care Line Builder Name Role Phone Wesley THOMPSON, Joe Primary Care Physician [facility] Date(s): 01/15/23 - 03/10/[address] [address]- Attending Physician: Not on Staff, Attending MD Allergies, Adverse Reactions, Alerts No Known Allergies Immunizations Given and Recorded Vaccine Date Status Refusal Reason [id number] 12y+ bivalent booster vax 06/12/22 Given SARS-CoV-2 [...] Replace Required Details, [id number] fill... Start Date: 10/30/22 Status: Ordered famotidine 20 mg oral tablet 20 mg, 1, tablet, By Mouth, 2 times a day, # 60 tablet, Refills 1, Tot. Refills 1, Maintenance, 02/12/23 17:58:00 EDT, Route to Pharmacy Electronically, [facility]/pharmacy #[id number], Partial fill upon patient request if the prescription is for a schedule II opi... Start Date: 02/12/23 Status: Ordered lidocaine 1.8% topical film 1 patch, Topically, Daily, leave on up to 12 hours, # 30 each, 0 Refills, Maintenance, 12/13/22 9:56:00 EDT, Film, [facility]/pharmacy #[id number], Partial fill upon patient request if the prescription is for a schedule II opioid drug., 1 patch Topically Daily,Ins... Start Date: 12/13/22 Status: Ordered [employer] COVID-19 (12y+) Bivalent Booster Vaccine PF intramuscular suspension 0.3 mL, Intramuscular, Once, # 0.3 mL, 0 Refills, Soft Stop, 06/12/22 16:26:00 EST, [facility]/pharmacy #[id number], Partial fill upon patient request if [...] 12/12/22 16:13:00 EDT, Route to Pharmacy Electronically, [facility]/pharmacy #[id number] Tablet, Partial fill upon patient request if the prescri... Start Date: 12/12/22 Status: Ordered Zofran 4 mg oral tablet 1 tablet = 4 mg, By Mouth, Every 8 hours, PRN Nausea & Vomiting, # 10 tablet, 0 Refills, Maintenance, 12/12/19 10:42:00 EDT, Tablet, [facility]/pharmacy #[id number], 175, cm, 12/12/19 10:24:00 EDT, Height, [...] Team Personnel Name: Joe Olson MD Position: [facility] Resident Member Role: PCP Address: Address: [address] [place] [address]- [place] Care Team Related Persons Name: LO DAWSON Address: [place] [address] Name: JOAQUIN LOYA Address: [address] [address]
--- OUTSIDE RECORDS SUMMARY | 2023-06-13 15:19 | XMS_ITS | Continuity of Care Document ---
Author Name Unknown Organization [facility] Address [address] [place] [address]- Care Team Providers Care Search Developer Name Role Phone Wesley THOMPSON, Joe Primary Care Physician [facility]counter [facility] Date(s): 07/11/22 - 09/14/[address] [address]- Attending Physician: Not on Staff, Attending MD Allergies, Adverse Reactions, Alerts No Known Allergies Immunizations Given and Recorded Vaccine Date Status Refusal Reason [id number] 12y+ bivalent booster vax 06/12/22 Given SARS-CoV-2 [...] Details, Route to Pharmacy Electronically, [facility]/pharmacy #[id number], Partial erik... Start Date: 07/11/22 Status: Ordered Heartburn Relief 10 mg oral tablet See Instructions, DANNY SHARP TABLETA DOS VECES AL ALTA, # 60 tablet, 0 Refills, Maintenance, 06/14/22 18:43:00 EST, [id number], 175, cm, 06/12/22 15:53:00 EST, Height Start Date: 06/14/22 Status: Ordered [employer] COVID-19 (12y+) Bivalent Booster Vaccine PF intramuscular suspension 0.3 mL, Intramuscular, Once, # 0.3 mL, 0 Refills, Soft Stop, 06/12/22 16:26:00 EST, [facility]/pharmacy #[id number], Partial fill upon patient request if [...] Maintenance, 12/12/19 10:42:00 EDT, Tablet, [facility]/pharmacy #[id number], 175, cm, 12/12/19 10:24:00 EDT, Height, [...] S Resident Member Role: PCP Address: Address: [address] [place] [address]- Care Team Related Persons Name: LO DAWSON Name: JOAQUIN LOYA Address: home [address] [place] [address]
--- OUTSIDE RECORDS SUMMARY | 2023-06-13 15:19 | XMS_ITS | Continuity of Care Document ---
Author Name Unknown Organization [facility] Address [address] [place] [address]- Care Team Providers Care Mold Bunch Trimmer Name Role Phone Joe Olson MD Primary Care Physician Encounter [facility] Date(s): 10/25/22 - 11/24/[address] [address]- Allergies, Adverse Reactions, Alerts No Known Allergies Immunizations Given and Recorded Vaccine Date Status Refusal Reason [id number] 12y+ bivalent booster vax 06/12/22 Given SARS-CoV-2 [...] Replace Required Details, Route to Pharmacy Electronically, [facility]/pharmacy #[id number], Partial fill... Start Date: 10/30/22 Status: Ordered famotidine 10 mg oral tablet 1 tablet = 10 mg, By Mouth, 2 times a day, # 60 tablet, 0 Refills, Maintenance, 10/30/22 9:24:00 EDT, Tablet, [facility]/pharmacy #[id number], Partial fill upon patient request if the prescription is for a schedule II opioid drug., 175, cm, 10/30/22 8:46:00 EDT, H... Start Date: 10/30/22 Status: Ordered naproxen 500 mg oral delayed release tablet 1 tablet = 500 mg, By Mouth, 2 times a day, # 60 tablet, 0 Refills, Acute 11/29/22 9:25:00 EDT, 10/30/22 9:25:00 EDT, EC Tablet, [facility]/pharmacy #[id number], Partial fill upon patient request if the prescription is for a schedule II opioid drug., 175, cm, 10/14... Start Date: 10/30/22 Stop Date: 11/29/22 Status: Ordered [employer] COVID-19 (12y+) Bivalent Booster Vaccine PF intramuscular suspension 0.3 mL, Intramuscular, Once, # 0.3 mL, 0 Refills, Soft Stop, 06/12/22 16:26:00 EST, [facility]/pharmacy #[id number], Partial fill upon [...] Team Personnel Name: Joe Olson MD Position: [facility] Resident Member Role: PCP Address: Address: [address] [place] [address]- Care Team Related Persons Name: LO DAWSON Name: JOAQUIN LOYA Address: home [address] [place] [address]
--- OUTSIDE RECORDS SUMMARY | 2023-06-13 15:19 | XMS_ITS | Continuity of Care Document ---
Author Name Unknown Organization [facility] Address [address] [place] [address]- Care Team Providers Care Service Department Manager Name Role Phone Joe Olson MD Primary Care Physician [phone] Encounter [facility] [place] [place] Date(s): 04/20/23 - 05/27/[address] [address] Attending Physician: Not on Staff, Attending MD Allergies, Adverse Reactions, Alerts No Known Allergies Immunizations Given and Recorded Vaccine Date Status Refusal Reason [id number] 12y+ bivalent booster vax 06/12/22 Given SARS-CoV-2 [...] 0 Refills, Maintenance, 04/20/23 16:23:00 EDT, Ointment, [facility]/pharmacy #[id number], Partial fill upon patient [...] 02/12/23 17:58:00 EDT, Route to Pharmacy Electronically, [facility]/pharmacy #[id number], Partial fill upon patient [...] Topically Daily,Ins... Start Date: 12/13/22 Status: Ordered [employer] COVID-19 (12y+) Bivalent Booster Vaccine PF intramuscular suspension 0.3 mL, Intramuscular, Once, # 0.3 mL, 0 Refills, Soft Stop, 06/12/22 16:26:00 EST, [facility]/pharmacy #[id number], Partial fill upon patient [...] 12/12/22 16:13:00 EDT, Route to Pharmacy Electronically, [facility]/pharmacy #[id number] Tablet, Partial fill upon patient request if the prescri... Start Date: 12/12/22 Status: Ordered Zofran 4 mg oral tablet 1 tablet = 4 mg, By Mouth, Every 8 hours, PRN Nausea & Vomiting, # 10 tablet, 0 Refills, Maintenance, 12/12/19 10:42:00 EDT, Tablet, [facility]/pharmacy #[id number], 175, cm, 12/12/19 10:24:00 [...] Team Personnel Name: Joe Olson MD Position: [facility] Resident Member Role: PCP Address: Address: [address] [place] [address]- Care Team Related Persons Name: LO DAWSON Address: home [address] [place] [address]
--- OUTSIDE RECORDS SUMMARY | 2023-06-13 15:19 | XMS_ITS | Continuity of Care Document ---
Author Name Unknown Organization [facility] Address [address] [place] [address]- Care Team Providers Care Manager Area Name Role Phone Not on Staff, PCP Primary Care Physician Unavail able [facility] Date(s): 03/15/23 - 04/14/[address] [address] Allergies, Adverse Reactions, Alerts No Known Allergies Immunizations Given and Recorded Vaccine Date Status Refusal Reason [id number] 12y+ bivalent booster vax 06/12/22 Given SARS-CoV-2 [...] EDT, Supply Start Date: 03/30/23 Status: Ordered blood pressure monitor dx reports [...] Replace Required Details, Route to Pharmacy Electronically, [facility]/pharmacy #[id number], Partial fill... Start Date: 10/30/22 Status: Ordered famotidine 20 mg oral tablet 20 mg, 1, tablet, By Mouth, 2 times a day, # 60 tablet, Refills 1, Tot. Refills 1, Maintenance, 02/12/23 17:58:00 EDT, Route to Pharmacy Electronically, [facility]/pharmacy #[id number], Partial fill upon patient request if the prescription is for a schedule II opi... Start Date: 02/12/23 Status: Ordered lidocaine 1.8% topical film 1 patch, Topically, Daily, leave on up to 12 hours, # 30 each, 0 Refills, Maintenance, 12/13/22 9:56:00 EDT, Film, [facility]/pharmacy #[id number], Partial fill upon patient request if the prescription is for a schedule II opioid drug., 1 patch Topically Daily,Ins... Start Date: 12/13/22 Status: Ordered naproxen 500 mg oral tablet 1 tablet = 500 mg, By Mouth, 2 times a day, for 14 days, # 28 tablet, 0 Refills, Acute 04/17/23 14:54:00 EDT, 04/03/23 14:54:00 EDT, Tablet, [id number], Partial fill upon patient request if the prescription is for a schedule II opioid drug., 1... Start Date: 04/03/23 Stop Date: 04/17/23 Status: Ordered [employer] COVID-19 (12y+) Bivalent Booster Vaccine PF intramuscular suspension 0.3 mL, Intramuscular, Once, # 0.3 mL, 0 Refills, Soft Stop, 06/12/22 16:26:00 EST, [facility]/pharmacy #[id number], Partial fill upon patient request [...] 12/12/22 16:13:00 EDT, Route to Pharmacy Electronically, [facility]/pharmacy #[id number] Tablet, Partial fill upon patient request if the prescri... Start Date: 12/12/22 Status: Ordered Zofran 4 mg oral tablet 1 tablet = 4 mg, By Mouth, Every 8 hours, PRN Nausea & Vomiting, # 10 tablet, 0 Refills, Maintenance, 12/12/19 10:42:00 EDT, Tablet, [facility]/pharmacy #[id number], 175, cm, 12/12/19 10:24:00 EDT, [...] Care team information Care Team Personnel Name: Not on Staff, PCP Position: [facility] Physician (General Medicine) Member Role: PCP Care Team Related Persons Name: LO DAWSON Address: home [address] [place] [address]
--- OUTSIDE RECORDS SUMMARY | 2023-06-13 15:19 | XMS_ITS | Continuity of Care Document ---
Author Name Unknown Organization [facility] Address [address] [place] [address]- Care Team Providers Care Research Group Director Name Role Phone Aislinn THOMPSON, Joslyn Primary Care Physician ( [phone] [facility]counter [facility] Date(s): 12/12/19 - 01/11/20 [facility] [address] [place] [address]- [facility] Attending Physician: Jono Bateman Admitting Physician: Jono Bateman Referring Physician: AdmtrJono Allergies, Adverse Reactions, Alerts Substance Reaction Severity Status NKA Active Immunizations Given and Recorded Vaccine Date Status Refusal Reason Human Papillomavirus Vaccine 06/02/16 Given Human Papillomavirus Vaccine 1 03/19/14 Given Human Papillomavirus Vaccine 2 04/03/13 Given influenza virus vaccine, inactivated 06/02/ Give n influenza virus vaccine, inactivated 3 04/03/13 Gi hattie influenza virus vaccine, inactivated 4 04/19/11 Gi hattie 1Result Comment: [03/19/2014] ordered by Dr Grande 2Rkelly Comment: [04/03/2013] Order By Dr Sanchez 3Rtobiasult Comment: [04/03/2013] Order By Dr Sanchez 4Admin [...] 0 Refills, Maintenance, 12/12/19 10:42:00 EDT, Tablet, [facility]/pharmacy #[id number], 175, cm, 12/12/19 10:24:00 EDT, Height, 88.6, kg, 05/16/19 10:34:00 EDT, Dry Weight Start Date: 12/12/19 Stop Date: 12/15/19 Status: Ordered Problem List Condition Effective Dates Status Health Status Inform ant Attention deficit hyperactiv ity disorder(Confirmed) Active Behavioral problem(Confirmed) Active Social History Social History Type Response Smoking Status Never smoker entered on: 06/02/16 Sex
--- OUTSIDE RECORDS SUMMARY | 2023-06-13 15:19 | XMS_ITS | Continuity of Care Document ---
Author Name Unknown Organization [facility] Address [address] [place] [address]- Care Team Providers Care Loading Machine Tool Setter Name Role Phone Wesley THOMPSON, Joe Primary Care Physician [phone] [facility]counter [facility] Date(s): 12/20/22 - 01/19/[address] [address]- Allergies, Adverse Reactions, Alerts No Known Allergies Immunizations Given and Recorded Vaccine Date Status Refusal Reason [id number] 12y+ bivalent booster vax 06/12/22 Given SARS-CoV-2 [...] Replace Required Details, [id number]... Start Date: 10/30/22 Status: Ordered famotidine 10 mg oral tablet 1 tablet = 10 mg, By Mouth, 2 times a day, # 60 tablet, 0 Refills, Maintenance, 10/30/22 9:24:00 EDT, Tablet, [facility]/pharmacy #[id number], Partial fill upon patient request if the prescription is for a schedule II opioid drug., 175, cm, 10/30/22 8:46:00 EDT, H... Start Date: 10/30/22 Status: Ordered lidocaine 1.8% topical film 1 patch, Topically, Daily, leave on up to 12 hours, # 30 each, 0 Refills, Maintenance, 12/13/22 9:56:00 EDT, Film, [id number] Partial fill upon patient request if the prescription is for a schedule II opioid drug., 1 patch Topically Daily,Ins... Start Date: 12/13/22 Status: Ordered [employer] COVID-19 (12y+) Bivalent Booster Vaccine PF intramuscular suspension 0.3 mL, Intramuscular, Once, # 0.3 mL, 0 Refills, Soft Stop, 06/12/22 16:26:00 EST, [id number] Partial fill upon patient request if [...] 12/12/22 16:13:00 EDT, Route to Pharmacy Electronically, [facility]/pharmacy #[id number] Tablet, Partial fill upon patient request if the prescri... Start Date: 12/12/22 Status: Ordered Zofran 4 mg oral tablet 1 tablet = 4 mg, By Mouth, Every 8 hours, PRN Nausea & Vomiting, # 10 tablet, 0 Refills, Maintenance, 12/12/19 10:42:00 EDT, Tablet, [facility]/pharmacy #[id number], 175, cm, 12/12/19 [...] Team Personnel Name: Joe Olson MD Position: [facility] Resident Member Role: PCP Address: Address: [address] [place] [address]- Care Team Related Persons Name: LO DAWSON Address: [place] [address] Name: JOAQUIN LOYA Address: home [address] [place] [id number]
--- OUTSIDE RECORDS SUMMARY | 2023-06-13 15:19 | XMS_ITS | Continuity of Care Document ---
Author Name Unknown Organization [facility] Address [address] [place] [address]- Care Team Providers Care Cnc Machine Programmer Name Role Phone Wesley THOMPSON, Joe Primary Care Physician [phone] Encounter [facility] Date(s): 02/26/23 - 03/28/[address] [address]- Allergies, Adverse Reactions, Alerts No Known Allergies Immunizations Given and Recorded Vaccine Date Status Refusal Reason [id number] 12y+ bivalent booster vax 06/12/22 Given SARS-CoV-2 [...] Replace Required Details, [id number]... Start Date: 10/30/22 Status: Ordered famotidine 20 mg oral tablet 20 mg, 1, tablet, By Mouth, 2 times a day, # 60 tablet, Refills 1, Tot. Refills 1, Maintenance, 02/12/23 17:58:00 EDT, [id number] Partial fill upon patient request if the prescription is for a schedule II opi... Start Date: 02/12/23 Status: Ordered lidocaine 1.8% topical film 1 patch, Topically, Daily, leave on up to 12 hours, # 30 each, 0 Refills, Maintenance, 12/13/22 9:56:00 EDT, Film, [id number] Partial fill upon patient request if the prescription is for a schedule II opioid drug., 1 patch Topically Daily,Ins... Start Date: 12/13/22 Status: Ordered [employer] COVID-19 (12y+) Bivalent Booster Vaccine PF intramuscular suspension 0.3 mL, Intramuscular, Once, # 0.3 mL, 0 Refills, Soft Stop, 06/12/22 16:26:00 EST, [facility]/pharmacy #[id number], Partial fill upon patient request if [...] 16:13:00 EDT, Route to Pharmacy Electronically, [facility]/pharmacy #[id number] Tablet, Partial fill upon patient request if the prescri... Start Date: 12/12/22 Status: Ordered Zofran 4 mg oral tablet 1 tablet = 4 mg, By Mouth, Every 8 hours, PRN Nausea & Vomiting, # 10 tablet, 0 Refills, Maintenance, 12/12/19 10:42:00 EDT, Tablet, [facility]/pharmacy #[id number], 175, cm, 12/12/19 10:24:00 EDT, Height, [...] Team Personnel Name: Joe Olson MD Position: [facility] Resident Member Role: PCP Address: Address: [address] [place] [address]- Care Team Related Persons Name: LO DAWSON Address: [place] [address] Name: JOAQUIN LOYA Address: [address] [address]
--- OUTSIDE RECORDS SUMMARY | 2023-06-13 15:19 | XMS_ITS | Continuity of Care Document ---
Author Name Unknown Organization [facility] Address [address] [place] [address]- Care Team Providers Care Interlocking Installer Name Role Phone Joe Olson MD Primary Care Physician [place] [facility] [place] - 10/26/[address] [address]- Attending Physician: Lizeth Quick MD Admitting Physician: Lizeth Quick MD Allergies, Adverse Reactions, Alerts No Known Allergies Immunizations Given and Recorded Vaccine Date Status Refusal Reason [id number] 12y+ bivalent booster vax 06/12/22 Given SARS-CoV-2 [...] Dr Sanchez 4Admin Note: VIS 02/07/2011GIVEN Medications acetaminophen 325 mg oral tablet 650 mg, 2, tablet, By Mouth, Every 4 hours, PRN, # 60 tablet, Refills 0, Tot. Refills 0, Acute 11/14/22 15:30:00 EDT, as needed for pain, 10/17/22 15:30:00 EDT, Route to Pharmacy Electronically, [facility]/pharmacy #[id number], Partial fill upon patient request if... Start Date: 10/17/22 Stop Date: 11/14/22 Status: Ordered blood pressure monitor dx reports [...] Replace Required Details, Route to Pharmacy Electronically, [facility]/pharmacy #[id number], Partial erik... Start Date: 07/11/22 Status: Ordered Heartburn Relief 10 mg oral tablet See Instructions, DANNY LEVYA DOS VECES AL ALTA, # 60 tablet, 0 Refills, Maintenance, 10/17/22 15:28:00 EDT, [facility]/pharmacy #[id number], 175, cm, 10/17/22 14:33:00 EDT, Height Start Date: 10/17/22 Status: Ordered EvaluAgent COVID-19 (12y+) Bivalent Booster Vaccine PF intramuscular suspension 0.3 mL, Intramuscular, Once, # 0.3 mL, 0 Refills, Soft Stop, 06/12/22 16:26:00 EST, [facility]/pharmacy #[id number], Partial fill upon patient request if [...] Team Personnel Name: Joe Olson MD Position: [facility] Resident Member Role: PCP Address: Address: [address] [place] [address]- Care Team Related Persons Name: LO DAWSON Name: JOAQUIN LOYA Address: home [address] [place] [address]
--- OUTSIDE RECORDS SUMMARY | 2023-06-13 15:19 | XMS_ITS | Continuity of Care Document ---
Author Name Unknown Organization [facility] Address [address] [place] [address]- Care Team Providers Care Environmental Conservation Officer Name Role Phone Joe Olson MD Primary Care Physician [phone] Encounter [facility] Date(s): 05/04/22 - 06/03/[address] [address]- Allergies, Adverse Reactions, Alerts No Known Allergies Immunizations Given and Recorded Vaccine Date Status Refusal Reason SARS-CoV-2 (COVID-19) mRNA-1273 vaccine 06/23/21 R ecorded [...] EC Capsule Start Date: 01/11/17 Status: Ordered SARS-CoV-2 (COVID-19) mRNA-1273 (bivalent booster) [...] S Resident Member Role: PCP Address: Address: [address] [place] [address]- Care Team Related Persons Name: LO DAWSON Name: JOAQUIN LOYA Address: home [address] [place] [address]
--- OUTSIDE RECORDS SUMMARY | 2023-06-13 15:19 | XMS_ITS | Continuity of Care Document ---
Author Name Unknown Organization [facility] Address [address] [place] [address]- Care Team Providers Care Clay Transporter Name Role Phone Not on Staff, PCP Primary Care Physician Unavail able [facility]counter [facility] Date(s): 03/13/23 - 04/12/23 [facility] [address] [place] [id number] Allergies, Adverse Reactions, Alerts No Known Allergies Immunizations Given and Recorded Vaccine Date Status Refusal Reason [id number] 12y+ bivalent booster vax 06/12/22 Given SARS-CoV-2 [...] Details, Route to Pharmacy Electronically, [facility]/pharmacy #[id number], Partial fill... Start Date: 10/30/22 Status: [...] Date: 04/03/23 Stop Date: 04/17/23 Status: Ordered Proper Cl[employer] COVID-19 (12y+) Bivalent Booster Vaccine PF intramuscular suspension 0.3 mL, Intramuscular, Once, # 0.3 mL, 0 Refills, Soft Stop, 06/12/22 16:26:00 EST, [facility]/pharmacy #[id number], Partial fill upon patient request if [...] 16:13:00 EDT, Route to Pharmacy Electronically, [facility]/pharmacy #[id number] Tablet, Partial fill upon patient request if the prescri... Start Date: 12/12/22 Status: Ordered Zofran 4 mg oral tablet 1 tablet = 4 mg, By Mouth, Every 8 hours, PRN Nausea & Vomiting, # 10 tablet, 0 Refills, Maintenance, 12/12/19 10:42:00 EDT, Tablet, [facility]/pharmacy #[id number], 175, cm, 12/12/19 10:24:00 EDT, Height, [...] Personnel Name: Not on Staff, PCP Position: [facility] Physician (General Medicine) Member Role: PCP Care Team Related Persons Name: SAMUEL DAWSONMESERET Address: home [address] [place], [place] [id number]
--- OUTSIDE RECORDS SUMMARY | 2023-06-13 15:19 | XMS_ITS | Continuity of Care Document ---
Author Name Unknown Organization [facility] Address [address] [place] [address]- Care Team Providers Care Clinical Liaison Name Role Phone Joe Olson MD Primary Care Physician [facility] Date(s): 05/11/23 - 06/10/[address] [address] Allergies, Adverse Reactions, Alerts No Known Allergies Immunizations Given and Recorded Vaccine Date Status Refusal Reason [id number] 12y+ bivalent booster vax 06/12/22 Given SARS-CoV-2 [...] 0 Refills, Maintenance, 04/20/23 16:23:00 EDT, Ointment, [facility]/pharmacy #[id number], Partial fill upon patient request [...] Topically Daily,Ins... Start Date: 12/13/22 Status: Ordered [email or web address] COVID-19 (12y+) Bivalent Booster Vaccine PF intramuscular suspension 0.3 mL, Intramuscular, Once, # 0.3 mL, 0 Refills, Soft Stop, 06/12/22 16:26:00 EST, [facility]/pharmacy #[id number], Partial fill upon patient request [...] 12/12/22 16:13:00 EDT, Route to Pharmacy Electronically, [facility]/pharmacy #[id number] Tablet, Partial fill upon patient request if the prescri... Start Date: 12/12/22 Status: Ordered Zofran 4 mg oral tablet 1 tablet = 4 mg, By Mouth, Every 8 hours, PRN Nausea & Vomiting, # 10 tablet, 0 Refills, Maintenance, 12/12/19 10:42:00 EDT, Tablet, [facility]/pharmacy #[id number], 175, cm, 12/12/19 10:24:00 EDT, [...] Team Personnel Name: Joe Olson MD Position: [facility] Resident Member Role: PCP Address: Address: [address] [place] [address]- Care Team Related Persons Name: LO DAWSON Address: home [address] [place] [address]
--- OUTSIDE RECORDS SUMMARY | 2023-06-13 15:19 | XMS_ITS | Continuity of Care Document ---
Author Name Unknown Organization [facility] Address [address] [place] [address]- Care Team Providers Care Record Clerk Name Role Phone Joe Olson MD Primary Care Physician [phone] [facility]counter [facility] Date(s): 12/28/22 - 02/11/[address] [address]- Attending Physician: Not on Staff, Attending MD Allergies, Adverse Reactions, Alerts No Known Allergies Immunizations Given and Recorded Vaccine Date Status Refusal Reason [id number] 12y+ bivalent booster vax 06/12/22 Given SARS-CoV-2 [...] Replace Required Details, [id number]... Start Date: 10/30/22 Status: Ordered famotidine 10 mg oral tablet 1 tablet = 10 mg, By Mouth, 2 times a day, # 60 tablet, 0 Refills, Maintenance, 10/30/22 9:24:00 EDT, Tablet, [facility]/pharmacy #[id number], Partial fill upon patient request if the prescription is for a schedule II opioid drug., 175, cm, 10/30/22 8:46:00 EDT, H... Start Date: 10/30/22 Status: Ordered lidocaine 1.8% topical film 1 patch, Topically, Daily, leave on up to 12 hours, # 30 each, 0 Refills, Maintenance, 12/13/22 9:56:00 EDT, Film, [facility]/pharmacy #[id number], Partial fill upon patient request if the prescription is for a schedule II opioid drug., 1 patch Topically Daily,Ins... Start Date: 12/13/22 Status: Ordered Transit App COVID-19 (12y+) Bivalent Booster Vaccine PF intramuscular suspension 0.3 mL, Intramuscular, Once, # 0.3 mL, 0 Refills, Soft Stop, 06/12/22 16:26:00 EST, [id number] Partial fill upon patient request [...] 12/12/22 16:13:00 EDT, Route to Pharmacy Electronically, [facility]/pharmacy #[id number] Tablet, Partial fill upon patient request if the prescri... Start Date: 12/12/22 Status: Ordered Zofran 4 mg oral tablet 1 tablet = 4 mg, By Mouth, Every 8 hours, PRN Nausea & Vomiting, # 10 tablet, 0 Refills, Maintenance, 12/12/19 10:42:00 EDT, Tablet, [facility]/pharmacy #[id number], 175, cm, 12/12/19 10:24:00 EDT, Height, [...] S Resident Member Role: PCP Address: Address: [address] [place] [address]- Care Team Related Persons Name: LO DAWSON Address: [place] [address] Name: JOAQUIN LOYA Address: home [address] [place] [address]
--- OUTSIDE RECORDS SUMMARY | 2023-06-13 15:19 | XMS_ITS | Continuity of Care Document ---
Author Name Unknown Organization [facility] Address [address] [place] [address]- Care Team Providers Care Tour Driver Name Role Phone Joe Olson MD Primary Care Physician Encounter [facility] Date(s): 10/25/22 - 11/24/[address] [address]- Allergies, Adverse Reactions, Alerts No Known Allergies Immunizations Given and Recorded Vaccine Date Status Refusal Reason [id number] 12y+ bivalent booster vax 06/12/22 Given SARS-CoV-2 [...] Replace Required Details, Route to Pharmacy Electronically, [facility]/pharmacy #[id number], Partial fill... Start Date: 10/30/22 Status: Ordered famotidine 10 mg oral tablet 1 tablet = 10 mg, By Mouth, 2 times a day, # 60 tablet, 0 Refills, Maintenance, 10/30/22 9:24:00 EDT, Tablet, [facility]/pharmacy #[id number], Partial fill upon patient request if the prescription is for a schedule II opioid drug., 175, cm, 10/30/22 8:46:00 EDT, H... Start Date: 10/30/22 Status: Ordered naproxen 500 mg oral delayed release tablet 1 tablet = 500 mg, By Mouth, 2 times a day, # 60 tablet, 0 Refills, Acute 11/29/22 9:25:00 EDT, 10/30/22 9:25:00 EDT, EC Tablet, [facility]/pharmacy #[id number], Partial fill upon patient request if the prescription is for a schedule II opioid drug., 175, cm, 10/14... Start Date: 10/30/22 Stop Date: 11/29/22 Status: Ordered Pramana COVID-19 (12y+) Bivalent Booster Vaccine PF intramuscular suspension 0.3 mL, Intramuscular, Once, # 0.3 mL, 0 Refills, Soft Stop, 06/12/22 16:26:00 EST, [facility]/pharmacy #[id number], Partial fill upon patient [...] Team Personnel Name: Joe Olson MD Position: [facility] Resident Member Role: PCP Address: Address: [address] [place] [address]- Care Team Related Persons Name: LO DAWSON Name: JOAQUIN LOYA Address: home [address] [place] [address]
--- OUTSIDE RECORDS SUMMARY | 2023-06-13 15:19 | XMS_ITS | Continuity of Care Document ---
Author Name Unknown Organization [facility] Address [address] [place] [address]- Care Team Providers Care Band Director Name Role Phone Not on Staff, PCP Primary Care Physician Unavail able [facility]counter [facility] Date(s): 04/04/23 - 04/04/[address] [address]- Encounter Diagnosis Foot abrasion(Final) - 04/04/23 Right foot injury(Final) - 04/04/23 Discharge Disposition: A-D/C Home Attending Physician: Sierra Méndez DO Admitting Physician: Sierra Méndez DO Referring Physician: Not on Staff, Referring MD Allergies, Adverse Reactions, Alerts No Known Allergies Immunizations Given and Recorded Vaccine Date Status Refusal Reason [id number] 12y+ bivalent booster vax 06/12/22 Given SARS-CoV-2 [...] Replace Required Details, Route to Pharmacy Electronically, [facility]/pharmacy #[id number], Partial fill... Start Date: 10/30/22 Status: Ordered famotidine 20 mg oral tablet 20 mg, 1, tablet, By Mouth, 2 times a day, # 60 tablet, Refills 1, Tot. Refills 1, Maintenance, 02/12/23 17:58:00 EDT, Route to Pharmacy Electronically, [facility]/pharmacy #[id number], Partial fill upon patient request if the prescription is for a schedule II opi... Start Date: 02/12/23 Status: Ordered lidocaine 1.8% topical film 1 patch, Topically, Daily, leave on up to 12 hours, # 30 each, 0 Refills, Maintenance, 12/13/22 9:56:00 EDT, Film, [facility]/pharmacy #[id number], Partial fill upon patient request if the prescription is for a schedule II opioid drug., 1 patch Topically Daily,Ins... Start Date: 12/13/22 Status: Ordered MorPHINE Immediate Release Tablet 15 mg, Tablet, By Mouth, Every 4 hours, PRN for Pain , Mild, STAT, 04/04/23 17:55:00 EDT Start Date: 04/04/23 Stop Date: 04/11/23 Status: Ordered naproxen 500 mg oral tablet 1 tablet = 500 mg, By Mouth, 2 times a day, for 14 days, # 28 tablet, 0 Refills, Acute 04/17/23 14:54:00 EDT, 04/03/23 14:54:00 EDT, Tablet, [facility]/pharmacy #[id number], Partial fill upon patient request if the prescription is for a schedule II opioid drug., 1... Start Date: 04/03/23 Stop Date: 04/17/23 Status: Ordered [employer] COVID-19 (12y+) Bivalent Booster Vaccine PF intramuscular suspension 0.3 mL, Intramuscular, Once, # 0.3 mL, 0 Refills, Soft Stop, 06/12/22 16:26:00 EST, [facility]/pharmacy #[id number], Partial fill upon patient request [...] 12/12/22 16:13:00 EDT, Route to Pharmacy Electronically, [facility]/pharmacy #[id number] Tablet, Partial fill upon patient [...] Confirmed Active 1Problem added by Discern Expert Results Radiology Reports * Exam Date Time Procedure Performing Provider Status 04/04/23 4:30 PM Foot Min 3 Views Right Birch , Tung; Auth (Verified) Notes: (Foot Min 3 Views Right) Reason For Exam: with Pain;Trauma RESULT: Foot Min 3 Views Right Ankle Min 3 Views Right, Tibia/Fibula 2 Views Right, Foot Min 3 Views Right Reason: Trauma; with Pain; Clinical Question(s): Fracture COMPARISON: None. FINDINGS: No evidence of acute or healing fracture or bone lesion. Intact ankle mortise and talar dome. No arthritic changes. Normal soft tissues. IMPRESSION: No acute displaced fracture or dislocation. WSN: [id number] Ordering Physician: Skylar Mancuso Dictated By: Henrietta Barney MD Dictated Date/Time: 04/04/23 4:34 pm Reviewed By: Henrietta Barney MD Signed By: Henrietta Barney MD Signed Date/Time: 04/04/23 4:34 pm Transcribed By: PETERSON Transcribed Date/Time: 04/04/23 4:30 pm * Exam Date Time Procedure Performing Provider Status 04/04/23 4:30 PM Tibia/Fibula 2 Views Right Birch , David shaheed; Auth (Verified) Notes: (Tibia/Fibula 2 Views Right) Reason For Exam: with Pain;Trauma RESULT: Tibia/Fibula 2 Views Right Ankle Min 3 Views Right, Tibia/Fibula 2 Views Right, Foot Min 3 Views Right Reason: Trauma; with Pain; Clinical Question(s): Fracture COMPARISON: None. FINDINGS: No evidence of acute or healing fracture or bone lesion. Intact ankle mortise and talar dome. No arthritic changes. Normal soft tissues. IMPRESSION: No acute displaced fracture or dislocation. WSN: [id number] Ordering Physician: Skylar Mancuso Dictated By: Henrietta Barney MD Dictated Date/Time: 04/04/23 4:34 pm Reviewed By: Henrietta Barney MD Signed By: Henrietta Barney MD Signed Date/Time: 04/04/23 4:34 pm Transcribed By: PETERSON Transcribed Date/Time: 04/04/23 4:30 pm * Exam Date Time Procedure Performing Provider Status 04/04/23 4:30 PM Ankle Min 3 Views Right Tung Birch ; Auth (Verified) Notes: (Ankle Min 3 Views Right) Reason For Exam: with Pain;Trauma RESULT: Ankle Min 3 Views Right Ankle Min 3 Views Right, Tibia/Fibula 2 Views Right, Foot Min 3 Views Right Reason: Trauma; with Pain; Clinical Question(s): Fracture COMPARISON: None. FINDINGS: No evidence of acute or healing fracture or bone lesion. Intact ankle mortise and talar dome. No arthritic changes. Normal soft tissues. IMPRESSION: No acute displaced fracture or dislocation. WSN: [id number] Ordering Physician: Skylar Mancuso Dictated By: Henrietta Barney MD Dictated Date/Time: 04/04/23 4:34 pm Reviewed By: Henrietta Barney MD Signed By: Henrietta Barney MD Signed Date/Time: 04/04/23 4:34 pm Transcribed By: PETERSON Transcribed Date/Time: 04/04/23 4:30 pm Vital Signs Most recent to oldest [Reference Range]: 1 2 3 Oxygen Saturation [94-100 %] 100 % (04/04/23 9:18 PM) 99 % (04/04/23 6:33 PM) 98 % (04/04/23 3:46 PM) Pulse Rate [55-90 bpm] 61 bpm (04/04/23 9:18 PM) 71 bpm (04/04/23 6:33 PM) 75 bpm (04/04/23 3:46 PM) Blood Pressure [90-138/55-84 mm Hg] 140/72mm Hg *H* (04/04/23 9:18 PM) 165/95mm Hg *H* (04/04/23 6:33 PM) 153/66mm Hg *H* (04/04/23 3:46 PM) Respiratory Rate [16-30 br/min] 20 br/min (04/04/23 9:18 PM) 19 br/min (04/04/23 6:42 PM) 19 br/min (04/04/23 6:33 PM) Temperature [96.8-100.4 DegF] 98.4 DegF (04/04/23 3:46 PM) Mode of Delivery (Oxygen) Room air (04/04/23 9:18 PM) Room air (04/04/23 6:33 PM) Room air (04/04/23 3:46 PM) Blood pressure sites Arm, right (04/04/23 9:18 PM) Arm, left (04/04/23 6:33 PM) Arm, left (04/04/23 3:46 PM) Temperature Route Oral (04/04/23 3:46 PM) Social History Social History Type Response Smoking Status Never smoker entered on: 06/02/16 Sex Patient Care team information Care Team Personnel Name: Not on Staff, PCP Position: [facility] Physician (General Medicine) Member Role: PCP Name: Sierra Méndez DO Position: [facility] Resident Member Role: Admitting Physician Address: Address: [address] [place] [address] Name: Skylar Mancuso DO Position: [facility] Resident Member Role: Resident Address: Address: [address] [place] [address] Name: Digna Garcia RN Position: [facility] ED RN W/OE and Tasks Member Role: Patient Care Provider Care Team Related Persons Name: XIN DAWSONJONELLE Address: home [address] [place] [address]
--- OUTSIDE RECORDS SUMMARY | 2023-06-13 15:19 | XMS_ITS | Continuity of Care Document ---
Author Name Unknown Organization [facility] Address [address] [place] [address]- Care Team Providers Care Commercial Real Estate Agent Name Role Phone Joe Olson MD Primary Care Physician [facility] Date[facility]): 02/14/23 - 03/16/23 [facility] [address] [place] [address]- [place] Allergies, Adverse Reactions, Alerts No Known Allergies Immunizations Given and Recorded Vaccine Date Status Refusal Reason [id number] 12y+ bivalent booster vax 06/12/22 Given SARS-CoV-2 [...] 2Rkelly Comment: [04/03/2013] Order By Dr Sanchez 3Result [...] Replace Required Details, Route to Pharmacy Electronically, [facility]/pharmacy #[id number], Partial fill... Start Date: 10/30/22 Status: Ordered famotidine 20 mg oral tablet 20 mg, 1, tablet, By Mouth, 2 times a day, # 60 tablet, Refills 1, Tot. Refills 1, Maintenance, 02/12/23 17:58:00 EDT, Route to Pharmacy Electronically, [facility]/pharmacy #[id number], Partial fill upon patient request if the prescription is for a schedule II opi... Start Date: 02/12/23 Status: Ordered lidocaine 1.8% topical film 1 patch, Topically, Daily, leave on up to 12 hours, # 30 each, 0 Refills, Maintenance, 12/13/22 9:56:00 EDT, Film, [facility]/pharmacy #[id number], Partial fill upon patient request if the prescription is for a schedule II opioid drug., 1 patch Topically Daily,Ins... Start Date: 12/13/22 Status: Ordered [employer] COVID-19 (12y+) Bivalent Booster Vaccine PF intramuscular suspension 0.3 mL, Intramuscular, Once, # 0.3 mL, 0 Refills, Soft Stop, 06/12/22 16:26:00 EST, [facility]/pharmacy #[id number], Partial fill upon patient request [...] 12/12/22 16:13:00 EDT, Route to Pharmacy Electronically, [facility]/pharmacy #[id number] Tablet, Partial fill upon patient [...] Team Personnel Name: Joe Olson MD Position: [facility] Resident Member Role: PCP Address: Address: [address] [place] [address]- Care Team Related Persons Name: LO DAWSON Address: [place] [address] Name: JOAQUIN LOYA Address: home [address] [place] [address]
--- OUTSIDE RECORDS SUMMARY | 2023-06-13 15:19 | XMS_ITS | Continuity of Care Document ---
Author Name Unknown Organization [facility] Address [address] [place] [address]- Care Team Providers Care Bell Clerk Name Role Phone Not on Staff, PCP Primary Care Physician Unavail able [facility] Date(s): 12/02/21 - 02/04/[address] [address]- Attending Physician: Not on Staff, Attending MD [...]
--- OUTSIDE RECORDS SUMMARY | 2023-06-13 15:19 | XMS_ITS | Continuity of Care Document ---
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 Vital Signs Most recent to oldest [Reference Range]: 1 Height 175 cm (12/12/19 10:24 AM) Oxygen Saturation [94-100 %] 100 % (12/12/19 10:24 AM) Pulse Rate [55-90 bpm] 60 bpm (12/12/19 10:24 AM) Blood Pressure [90-138/55-84 mm Hg] 132/ 72mm Hg (12/12/19 10:24 AM) Respiratory Rate [16-30 br/min] 21 br/mi n (12/12/19 10:24 AM) Temperature [96.8-100.4 DegF] 98.3 DegF (12/12/19 10:24 AM) Mode of Delivery (Oxygen) Room air (12/12/19 10:24 AM) Blood pressure sites Arm, left (12/12/19 10:24 AM) Temperature Route Temporal (12/12/19 10:24 AM) Social History Social History Type Response Smoking Status Never smoker entered on: 06/02/16 Sex
--- OUTSIDE RECORDS SUMMARY | 2023-06-13 15:19 | XMS_ITS | Continuity of Care Document ---
Author Name Unknown Organization [facility] Address [address] [place] [address]- Care Team Providers Care Shopper Name Role Phone Wesley THOMPSON, Joe Primary Care Physician [phone] [facility] Date(s): 02/20/23 - 03/22/[address] [address]- Allergies, Adverse Reactions, Alerts No Known Allergies Immunizations Given and Recorded Vaccine Date Status Refusal Reason [id number] 12y+ bivalent booster vax 06/12/22 Given SARS-CoV-2 [...] Replace Required Details, [id number]... Start Date: 10/30/22 Status: Ordered famotidine 20 mg oral tablet 20 mg, 1, tablet, By Mouth, 2 times a day, # 60 tablet, Refills 1, Tot. Refills 1, Maintenance, 02/12/23 17:58:00 EDT, [id number] Partial fill upon patient request if the prescription is for a schedule II opi... Start Date: 02/12/23 Status: Ordered lidocaine 1.8% topical film 1 patch, Topically, Daily, leave on up to 12 hours, # 30 each, 0 Refills, Maintenance, 12/13/22 9:56:00 EDT, Film, [id number] Partial fill upon patient request if the prescription is for a schedule II opioid drug., 1 patch Topically Daily,Ins... Start Date: 12/13/22 Status: Ordered [employer] COVID-19 (12y+) Bivalent Booster Vaccine PF intramuscular suspension 0.3 mL, Intramuscular, Once, # 0.3 mL, 0 Refills, Soft Stop, 06/12/22 16:26:00 EST, [facility]/pharmacy #[id number], Partial fill upon patient [...] 12/12/22 16:13:00 EDT, Route to Pharmacy Electronically, [facility]/pharmacy #[id number] Tablet, Partial fill upon patient request if the prescri... Start Date: 12/12/22 Status: Ordered Zofran 4 mg oral tablet 1 tablet = 4 mg, By Mouth, Every 8 hours, PRN Nausea & Vomiting, # 10 tablet, 0 Refills, Maintenance, 12/12/19 10:42:00 EDT, Tablet, [facility]/pharmacy #[id number], 175, cm, 12/12/19 10:24:00 [...] Team Personnel Name: Joe Olson MD Position: [facility] Resident Member Role: PCP Address: Address: [address] [place] [address]- Care Team Related Persons Name: LO DAWSON Address: [place] [address] Name: JOAQUIN LOYA Address: [address] [address]
[2023-06-13 15:28] VITALS: BP 127/72; PULSE 59; RESP 16; O2SAT 99
[2023-06-13] MEDS: Ibuprofen 800 MG TABLET PO (16:17)
[2023-06-13] MEDS: Acetaminophen 325 MG TABLET 975 MG PO (16:17)
--- NOTE | 2023-06-13 16:18 | PC.NURSE ---
medication administered per provider - will reassess. pt awaiting swab results.
[2023-06-13 16:21] LABS: Influenza A PCR NEGATIVE (Negative); Influenza B PCR NEGATIVE (Negative); Resp Syncy Virus RNA Qual PCR POSITIVE (Negative); SARS COV2 PCR INHOUSE NEGATIVE (Negative)
== END 2023-06-13 17:13 | disposition home or self-care (01) ==
PROVIDERS: Physician Assistant Medical; Emergency Provider Emergency Medicine
DX: S22.42XA Multiple fractures of ribs, left side, initial encounter for closed fracture (principal); R07.89 Other chest pain; J22 Unspecified acute lower respiratory infection; R07.81 Pleurodynia; X58.XXXA Exposure to other specified factors, initial encounter; Y93.9 Activity, unspecified; Y92.9 Unspecified place or not applicable; Y99.9 Unspecified external cause status; Z20.822 Contact with and (suspected) exposure to COVID-19; Z20.828 Contact with and (suspected) exposure to other viral communicable diseases
CPT/HCPCS: 0241U; 71101; 93005; 99283; 99284